=== PATIENT | male | born 1950 | race Caucasian/White ===

== ENCOUNTER → 2018-04-01 | Emergency (ER) | payer MEDICARE, MEDICAID, OTHER ==
[2018-04-01 20:33] LABS: ADD MAN DIFF? NO
[2018-04-01 20:36] LABS: BASOPHIL # 0.1 10^3/ul (0.0-0.1); BASOPHILS % 0.5 % (0.0-2.0); EOSINOPHILS # 0.1 10^3/ul (0.0-0.5); EOSINOPHILS % 1.3 % (0.0-7.0); HEMATOCRIT 47.9 % (42.0-52.0); HEMOGLOBIN 15.8 g/dl (14.0-18.0); LYMPHOCYTES # 2.5 10^3/ul (0.8-2.9); LYMPHOCYTES % 23.9 % (15.0-51.0); MEAN CORPUSCULAR HEMOGLOBIN 29.8 pg (29.0-33.0); MEAN CORPUSCULAR VOLUME 90.4 fl (82.0-101.0); MEAN PLATELET VOLUME 10.1 fl (7.4-10.4); MONOCYTE # 0.7 10^3/ul (0.3-0.9); MONOCYTES % 6.1 % (0.0-11.0); NEUTROPHIL # 7.2 10^3/ul (1.6-7.5); NEUTROPHILS % 67.9 % (39.0-77.0); PLATELET COUNT 288 10^3/UL (140-415); RED CELL DISTRIBUTION WIDTH 12.1 % (11.5-14.5)
[2018-04-01 20:36] LABS: WHITE BLOOD COUNT 10.6 10^3/ul (4.8-10.8)
[2018-04-01] MEDS: ONDANSETRON 4 MG INJ IV (20:41)
[2018-04-01] MEDS: morphine 4 MG/ML VIAL IV (20:42)
[2018-04-01] MEDS: LACTATED RINGER'S 1,000 ML IV (20:45)
[2018-04-01 21:09] LABS: ALANINE AMINOTRANSFERASE 58 IU/L (13-69); ALBUMIN 4.6 g/dl (3.3-4.9); ALBUMIN/GLOBULIN RATIO 1.43; ALKALINE PHOSPHATASE 77 IU/L (42-121); ANION GAP 16 (8-16); ASPARTATE AMINO TRANSFERASE 31 IU/L (15-46); BILIRUBIN,INDIRECT 0.3 mg/dl (0-1.1); BILIRUBIN,TOTAL 0.3 mg/dl (0.2-1.3); BLOOD UREA NITROGEN 14 mg/dl (7-20); CALCIUM 9.4 mg/dl (8.4-10.2); CARBON DIOXIDE 27 mmol/L (21-31); CHLORIDE 105 mmol/L (97-110); CREATININE 0.89 mg/dl (0.61-1.24); GLUCOSE 122 mg/dl (70-220); LIPASE 98 U/L (23-300); SODIUM 144 mmol/L (135-144); TOTAL PROTEIN 7.8 g/dl (6.1-8.1)
[2018-04-01 21:21] LABS: TROPONIN-I < 0.012 ng/ml (0.000-0.120)
== END | disposition home or self-care (01) ==
LOC: E/R 15:34
DX: K80.50 Calculus of bile duct without cholangitis or cholecystitis without obstruction (principal); E11.9 Type 2 diabetes mellitus without complications; Z79.82 Long term (current) use of aspirin; Z79.84 Long term (current) use of oral hypoglycemic drugs
CPT/HCPCS: 36415; 76705; 80053; 83690; 84484; 85025; 93005; 96374; 96375; 99285-25